=== PATIENT | male | born 1980 | race Caucasian/White ===

== ENCOUNTER 2018-06-25 18:53 | Emergency (ER) | payer SELFPAY ==
[~2018-06-25] VITALS: Ht 177.8 cm; Wt 65.7 kg
[2018-06-25 19:23] VITALS: BP 129/78
== END 2018-06-25 20:31 | disposition left against medical advice (07) ==
LOC: EME 18:53
DX: M79.601 Pain in right arm (principal); Z53.21 Procedure and treatment not carried out due to patient leaving prior to being seen by health care provider